=== PATIENT | female | born 1930 | race Caucasian/White ===

== ENCOUNTER → 2017-02-09 | Outpatient (CLI) | payer OTHER, MEDICARE | LOC: BHLMT 14:00 | PROVIDERS: ATTEND Internal Medicine Cardiovascular Disease | DX: I05.9 Rheumatic mitral valve disease, unspecified (principal); I48.0 Paroxysmal atrial fibrillation; I49.5 Sick sinus syndrome; I50.30 Unspecified diastolic (congestive) heart failure; I27.2 Other secondary pulmonary hypertension; G47.33 Obstructive sleep apnea (adult) (pediatric); E11.65 Type 2 diabetes mellitus with hyperglycemia; Z95.0 Presence of cardiac pacemaker | CPT/HCPCS: 93005-PO ==

== ENCOUNTER → 2017-02-17 | Outpatient (CLI) | payer OTHER, MEDICARE | LOC: BHLMT 14:00 | PROVIDERS: ATTEND Internal Medicine Cardiovascular Disease | DX: I48.91 Unspecified atrial fibrillation (principal); R06.00 Dyspnea, unspecified | CPT/HCPCS: 93306-PO ==

== ENCOUNTER → 2018-01-24 | Day surgery (SDC) | payer OTHER, MEDICARE ==
[~2018-01-24] MED LIST: ATROPINE SULFATE 1 MG/10 ML SYR IVP ONE; LIDOCAINE 2% 5 ML SDV ONE; MIDAZOLAM 2 MG/2 ML VIAL IVP ONE; NS 500 ML IV ONE; PROPOFOL 200 MG/20 ML VIAL ONE; fentaNYL 100 MCG/2 ML INJ IVP ONE
--- NOTE | 2018-01-24 14:00 | PDHPUP ---
History & Physical Update H&P update statement: This history and physical update is based on an assessment of the patient which was completed after admission or registration (within 24 hours), but prior to the surgery/procedure. H&P update: H&P reviewed & patient examined, no change in patient's condition since H&P completed
[2018-01-24 15:02] LABS: INR 2.75 (0.83-1.16)
--- NOTE | 2018-01-24 15:31 | PDTEE1 ---
SANJUANITA Cardioversion Procedure Indications: atrial fibrillation Consent: signed and in chart Anticoagulation: warfarin Procedural Details: Pads were placed in anterior-posterior position. Synchronized cardioversion attempt #1: 200J Results: normal sinus rhythm Conclusions: successful cardioversion Patient Problems: Problems Problem Status Onset Afib - Atrial fibrillation Active Sinus node dysfunction Active Mitral valve disorder Active CHF - Diastolic heart failure Active
--- NOTE | 2018-01-24 15:40 | PDANEPAE ---
ANE History of Present Illness cv ANE Past Medical History - Cardiovascular History Hx Hypertension: Yes Hx Arrhythmias: Yes Hx Chest Pain: Yes Hx Coronary Artery / Peripheral Vascular Disease: No Hx CHF / Valvular Disease: Yes Hx Palpitations: No Cardiovascular History Comment: P AFIB. SSS- DUAL CHAMBER PACEMAKER. HEART FAILURE ASYMPTOMATIC. MVR - Pulmonary History Hx COPD: No Hx Asthma/Reactive Airway Disease: No Hx Recent Upper Respiratory Infection: No Hx Oxygen in Use at Home: Yes Hx Sleep Apnea: Yes Pulmonary History Comment: ASTHMA. DINA- CPAP, O2 AT NOC. PULM HTN - Neurologic History Hx Cerebrovascular Accident: No Hx Seizures: No Hx Dementia: No - Endocrine History Hx Diabetes: Yes Endocrine History Comment: DM II - Renal History Hx Renal Disorders: No - Liver History Hx Hepatic Disorders: No - Neurological & Psychiatric Hx Hx Neurological and Psychiatric Disorders: No - Cancer History Hx Cancer: No - Congenital Disorder History Hx Congenital Disorders: No - GI History Hx Gastrointestinal Disorders: No Gastrointestinal History Comment: HEMORRHOIDS REPAIR 05/2016 STATES NOW HAS INFECTION 06/2016. GERD. DIFFICULTY SWALLOWING - Other Health History Other Health History: HEARING LOSS. BRUISE EASILY- WARFARIN. OA- KNEES. MISSING TEETH - Chronic Pain History Chronic Pain: Yes (OA- KNEES) - Surgical History Prior Surgeries: HEMORRHOIDECTOMY 05/2016. PACEMAKER 2012. CATARACTS. L WRIST 2010. MVR 2005. CORONARY ANGIOGRAM. R ANKLE FX 1996. CHOLECYSTECTOMY. HYSTEROSCOPY. HEMORRHOID CAUTERIZATION ANE Review of Systems Review of Systems: - Exercise capacity METS (RN): 4 METS - Pacemaker Date Pacemaker Last Checked: unknown ANE Patient History - Allergies Allergies/Adverse Reactions: codeine [Codeine] Allergy (Intermediate, Verified 05/13/16 16:00) Vomiting - Home Medications Home Medications: Simvastatin [Zocor 20 mg] 20 mg PO HS 05/10/13 [Last Taken 07/03/16] glipiZIDE [Glipizide 10 MG (RX)] 10 mg PO DAILY AT 10AM 05/10/13 [Last Taken 08:00] Acetaminophen [Tylenol ES 500 mg (*)] 500 mg PO Q6 PRN 05/12/16 [Last Taken 20:00] Furosemide [Lasix 20 MG (*)] 40 mg PO DAILY AT 10AM 05/12/16 [Last Taken 08:00] Sotalol HCl [SOTALOL] 80 mg PO BID 05/13/16 [Last Taken 07/03/16 07:15] Amox-Clav 875-125 mg Tablet PO BID 07/02/16 [Last Taken 07/02/16] - Smoking Hx Smoking Status: Never smoked - Family Anes Hx Family Hx Anesthesia Complications: NONE ANE Labs/Vital Signs - Labs Result Diagrams: 01/24/18 14:40 ANE Physical Exam - Airway Mallampati Score: Class 2 Mouth exam: normal dental/mouth exam - Pulmonary Pulmonary: no respiratory distress - Cardiovascular Cardiovascular: irregularly irregular - ASA Status ASA Status: III ANE Anesthesia Plan Anesthesia Plan: GA with mask (ivga)
--- NOTE | 2018-01-24 15:41 | POSTANESTH ---
Post Anesthetic Evaluation Cardiovascular Status: Normal, Stable Respiratory Status: Normal, Stable Level of Consciousness/Mental Status: Can Participate in Eval Pain Control: Adequate, Prn Tx Ordered Nausea/Vomiting Control: Adequate, Prn Tx Ordered Complications Possibly Related to Anesthesia: None Noted
--- NOTE | 2018-01-24 15:41 | CPEKG ---
Heart Rate: 63 RR Interval: 952 P-R Interval: 224 QRSD Interval: 106 QT Interval: 440 QTC Interval: 451 QRS [place]: 39 T Wave [place]: 105 EKG Severity - ABNORMAL ECG - EKG Impression: ATRIAL-PACED RHYTHM EKG Impression: NONSPECIFIC T ABNORMALITIES, ANT-LAT LEADS Electronically Signed By: Hayden Richter 26-Jan-2018 10:09:50
== END | disposition home or self-care (01) ==
LOC: FCATH 13:36
PROVIDERS: ATTEND Internal Medicine Interventional Cardiology
PROC: 5A2204Z Restoration of Cardiac Rhythm, Single (ICD-10-PCS; principal; 2018-01-24)
DX: I48.0 Paroxysmal atrial fibrillation (principal); I05.9 Rheumatic mitral valve disease, unspecified; I49.5 Sick sinus syndrome; I50.30 Unspecified diastolic (congestive) heart failure; E66.9 Obesity, unspecified; I27.29 Other secondary pulmonary hypertension; G47.33 Obstructive sleep apnea (adult) (pediatric); Z95.0 Presence of cardiac pacemaker
CPT/HCPCS: J2704

== ENCOUNTER → 2018-02-22 | Outpatient (CLI) | payer OTHER, MEDICARE | LOC: BHLMT 11:30 | PROVIDERS: ATTEND Internal Medicine Interventional Cardiology | DX: I48.91 Unspecified atrial fibrillation (principal); I05.9 Rheumatic mitral valve disease, unspecified | CPT/HCPCS: 93306-PO ==

== ENCOUNTER 2018-03-31 11:51 | Day surgery (SDC) | payer OTHER, MEDICARE ==
[2018-03-31] MEDS ORDERED: ATROPINE SULFATE 1 MG/10 ML SYR IVP ONE (11:57)
[2018-03-31] MEDS ORDERED: MIDAZOLAM 2 MG/2 ML VIAL IVP ONE (11:57)
[2018-03-31] MEDS ORDERED: fentaNYL 100 MCG/2 ML INJ IVP ONE (11:57)
[2018-03-31] MEDS ORDERED: BENZOCAINE UNIT DOSE SPRAY HURRICAINE MM ONE (11:57)
[2018-03-31] MEDS ORDERED: NS 500 ML IV ONE (11:57)
--- NOTE | 2018-03-31 12:24 | CPEKG ---
Heart Rate: 92 RR Interval: 652 QRSD Interval: 114 QT Interval: 408 QTC Interval: 505 QRS [place]: 64 T Wave [place]: 81 EKG Severity - ABNORMAL ECG - EKG Impression: A-FLUTTER W/ PREDOM 3:1 AV BLOCK, A-RATE 263 EKG Impression: NONSPECIFIC INTRAVENTRICULAR CONDUCTION DELAY Electronically Signed By: Matt Dean 31-Mar-2018 15:28:19
[2018-03-31 12:51] LABS: INR 2.39 (0.83-1.16); PROTIME(PATIENT) 26.1 SEC (12.0-15.0)
--- NOTE | 2018-03-31 13:06 | PDANEPAE ---
ANE History of Present Illness 87 yo for dcvc, afib ANE Past Medical History - Cardiovascular History Hx Hypertension: Yes Hx Arrhythmias: Yes Hx Chest Pain: Yes Hx Coronary Artery / Peripheral Vascular Disease: No Hx CHF / Valvular Disease: Yes Hx Palpitations: No Cardiovascular History Comment: P AFIB. SSS- DUAL CHAMBER PACEMAKER. HEART FAILURE ASYMPTOMATIC. MVR - Pulmonary History Hx COPD: No Hx Asthma/Reactive Airway Disease: No Hx Recent Upper Respiratory Infection: No Hx Oxygen in Use at Home: Yes Hx Sleep Apnea: Yes Pulmonary History Comment: ASTHMA. DINA- CPAP, O2 AT [facility]. PULM HTN - Neurologic History Hx Cerebrovascular Accident: No Hx Seizures: No Hx Dementia: No - Endocrine History Hx Diabetes: Yes Endocrine History Comment: DM II - Renal History Hx Renal Disorders: No - Liver History Hx Hepatic Disorders: No - Neurological & Psychiatric Hx Hx Neurological and Psychiatric Disorders: No - Cancer History Hx Cancer: No - Congenital Disorder History Hx Congenital Disorders: No - GI History Hx Gastrointestinal Disorders: No Gastrointestinal History Comment: HEMORRHOIDS REPAIR 05/2016 STATES NOW HAS INFECTION 06/2016. GERD. DIFFICULTY SWALLOWING - Other Health History Other Health History: HEARING LOSS. BRUISE EASILY- WARFARIN. OA- KNEES. MISSING TEETH - Chronic Pain History Chronic Pain: Yes (OA- KNEES) - Surgical History Prior Surgeries: HEMORRHOIDECTOMY 05/2016. PACEMAKER 2012. CATARACTS. L WRIST 2010. MVR 2005. CORONARY ANGIOGRAM. R ANKLE FX 1996. CHOLECYSTECTOMY. HYSTEROSCOPY. HEMORRHOID CAUTERIZATION ANE Review of Systems Review of Systems: - Exercise capacity METS (RN): 3 METS - Pacemaker Date Pacemaker Last Checked: unknown ANE Patient History - Allergies Allergies/Adverse Reactions: codeine [Codeine] Allergy (Intermediate, Verified 05/13/16 16:00) Vomiting - Home Medications Home medications: home medication list seen and reviewed Home Medications: Simvastatin [Zocor 20 mg] 20 mg PO HS 05/10/13 [Last Taken 07/03/16] glipiZIDE [Glipizide 10 MG (RX)] 10 mg PO DAILY AT 10AM 05/10/13 [Last Taken 08:00] Acetaminophen [Tylenol ES 500 mg (*)] 500 mg PO Q6 PRN 05/12/16 [Last Taken 20:00] Furosemide [Lasix 20 MG (*)] 40 mg PO DAILY AT 10AM 05/12/16 [Last Taken 08:00] Sotalol HCl [SOTALOL] 80 mg PO BID 05/13/16 [Last Taken 07/03/16 07:15] Amox-Clav 875-125 mg Tablet PO BID 07/02/16 [Last Taken 07/02/16] - Smoking Hx Smoking Status: Never smoked - Family Anes Hx Family Hx Anesthesia Complications: NONE ANE Labs/Vital Signs - Labs Result Diagrams: 03/31/18 12:30 - Vital Signs Height: 5 ft 5 in Weight: 86.636 kg ANE Physical Exam - Airway Mallampati Score: Class 2 Mouth exam: normal dental/mouth exam - Pulmonary Pulmonary: no respiratory distress - Cardiovascular Cardiovascular: regular rate and rhythym - ASA Status ASA Status: III ANE Anesthesia Plan Anesthesia Plan: GA with mask
[2018-03-31] MEDS ORDERED: PROPOFOL 200 MG/20 ML VIAL ONE (13:07)
--- NOTE | 2018-03-31 13:19 | PDTEE1 ---
SANJUANITA Cardioversion Procedure Procedure: electrical cardioversion Indications: atrial fibrillation Consent: signed and in chart Anticoagulation: warfarin Procedural Details: Pads were placed in anterior-posterior position. SANJUANITA probe was advanced and standard images obtained. There is no evidence of left atrial or left atrial appendage thrombus. Synchronized cardioversion attempt #1: 200J Results: normal sinus rhythm Conclusions: successful cardioversion Patient Problems: Problems Problem Status Onset Afib - Atrial fibrillation Active CHF - Diastolic heart failure Active Mitral valve disorder Active Sinus node dysfunction Active
--- NOTE | 2018-03-31 13:35 | CPEKG ---
Heart Rate: 60 RR Interval: 1000 P-R Interval: 252 QRSD Interval: 100 QTC Interval: 0 QRS [place]: 52 EKG Severity - ABNORMAL ECG - EKG Impression: ATRIAL-VENTRICULAR DUAL-PACED COMPLEXES EKG Impression: FIRST DEGREE AV BLOCK EKG Impression: BORDERLINE T ABNORMALITIES, ANT-LAT LEADS Electronically Signed By: Matt Dean 31-Mar-2018 15:28:11
[2018-03-31 14:39] VITALS: BP 118/72
== END 2018-03-31 15:28 | disposition home or self-care (01) ==
LOC: FCATH 11:51
PROVIDERS: ATTEND Internal Medicine Cardiovascular Disease
DX: I48.0 Paroxysmal atrial fibrillation (principal); Z95.2 Presence of prosthetic heart valve; I10 Essential (primary) hypertension; E11.9 Type 2 diabetes mellitus without complications; I49.5 Sick sinus syndrome; Z95.0 Presence of cardiac pacemaker; I05.9 Rheumatic mitral valve disease, unspecified
CPT/HCPCS: J0461; J2704

== ENCOUNTER → 2018-04-14 | Outpatient (CLI) | payer OTHER, MEDICARE | LOC: BHLMT 13:00 | PROVIDERS: ATTEND Internal Medicine Interventional Cardiology | DX: I49.5 Sick sinus syndrome (principal); I48.0 Paroxysmal atrial fibrillation; I38 Endocarditis, valve unspecified ==

== ENCOUNTER 2018-04-21 06:43 | Day surgery (SDC) | payer OTHER, MEDICARE ==
[2018-04-21] MEDS ORDERED: fentaNYL 100 MCG/2 ML INJ IVP ONE (06:46)
[2018-04-21] MEDS ORDERED: ATROPINE SULFATE 1 MG/10 ML SYR IVP ONE (06:46)
[2018-04-21] MEDS ORDERED: NS 500 ML IV ONE (06:46)
[2018-04-21] MEDS ORDERED: MIDAZOLAM 2 MG/2 ML VIAL IVP ONE (06:46)
--- NOTE | 2018-04-21 07:05 | CPEKG ---
Heart Rate: 98 RR Interval: 612 QRSD Interval: 108 QT Interval: 396 QTC Interval: 506 QRS [place]: 67 T Wave [place]: -22 EKG Severity - ABNORMAL ECG - EKG Impression: ATRIAL FIBRILLATION EKG Impression: BORDERLINE PROLONGED QT INTERVAL EKG Impression: ATRIAL FIBRILLATION HAS REPLACED AV PACING NOTED ON PRIOR ECG Electronically Signed By: Israel Deleon 21-Apr-2018 16:33:20
[2018-04-21 07:28] LABS: INR 2.12 (0.83-1.16); PROTIME(PATIENT) 23.8 SEC (12.0-15.0)
[2018-04-21] MEDS ORDERED: PROPOFOL 200 MG/20 ML VIAL ONE (08:42)
--- NOTE | 2018-04-21 08:48 | PDANEPAE ---
ANE History of Present Illness a. fib ANE Past Medical History - Cardiovascular History Hx Hypertension: Yes Hx Arrhythmias: Yes Hx Chest Pain: Yes Hx Coronary Artery / Peripheral Vascular Disease: No Hx CHF / Valvular Disease: Yes Hx Palpitations: No Cardiovascular History Comment: P AFIB. SSS- DUAL CHAMBER PACEMAKER. HEART FAILURE ASYMPTOMATIC. MVR - Pulmonary History Hx COPD: No Hx Asthma/Reactive Airway Disease: No Hx Recent Upper Respiratory Infection: No Hx Oxygen in Use at Home: Yes Hx Sleep Apnea: Yes Pulmonary History Comment: ASTHMA. DINA- CPAP, O2 AT NOC. PULM HTN - Neurologic History Hx Cerebrovascular Accident: No Hx Seizures: No Hx Dementia: No - Endocrine History Hx Diabetes: Yes Endocrine History Comment: DM II - Renal History Hx Renal Disorders: No - Liver History Hx Hepatic Disorders: No - Neurological & Psychiatric Hx Hx Neurological and Psychiatric Disorders: No - Cancer History Hx Cancer: No - Congenital Disorder History Hx Congenital Disorders: No - GI History Hx Gastrointestinal Disorders: No Gastrointestinal History Comment: HEMORRHOIDS REPAIR 05/2016 STATES NOW HAS INFECTION 06/2016. GERD. DIFFICULTY SWALLOWING - Other Health History Other Health History: HEARING LOSS. BRUISE EASILY- WARFARIN. OA- KNEES. MISSING TEETH - Chronic Pain History Chronic Pain: Yes (OA- KNEES) - Surgical History Prior Surgeries: HEMORRHOIDECTOMY 05/2016. PACEMAKER 2012. CATARACTS. L WRIST 2010. MVR 2005. CORONARY ANGIOGRAM. R ANKLE FX 1996. CHOLECYSTECTOMY. HYSTEROSCOPY. HEMORRHOID CAUTERIZATION ANE Review of Systems Review of systems is: negative Review of Systems: - Exercise capacity Exercise capacity: >=4 METS - Pacemaker Date Pacemaker Last Checked: unknown ANE Patient History - Allergies Allergies/Adverse Reactions: codeine [Codeine] Allergy (Intermediate, Verified 05/13/16 16:00) Vomiting - Home Medications Home Medications: Simvastatin [Zocor 20 mg] 20 mg PO HS 05/10/13 [Last Taken 07/03/16] glipiZIDE [Glipizide 10 MG (RX)] 10 mg PO DAILY AT 10AM 05/10/13 [Last Taken ] Acetaminophen [Tylenol ES 500 mg (*)] 500 mg PO Q6 PRN 05/12/16 [Last Taken 20:00] Furosemide [Lasix 20 MG (*)] 60 mg PO DAILY AT 10AM 05/12/16 [Last Taken 08:00] Potassium Chloride 20 meq DAILY 03/31/18 [Last Taken Unknown] Warfarin Sodium 2.5 03/31/18 [Last Taken 03/30/18 1700] - Smoking Hx Smoking Status: Never smoked - Family Anes Hx Family Hx Anesthesia Complications: NONE ANE Labs/Vital Signs - Labs Result Diagrams: 04/21/18 07:11 - Vital Signs Height: 152.4 cm Weight: 86.183 kg ANE Physical Exam - Airway Neck exam: FROM Mallampati Score: Class 1 Mouth exam: normal dental/mouth exam - Pulmonary Pulmonary: no respiratory distress - Cardiovascular Cardiovascular: regular rate and rhythym - ASA Status ASA Status: III ANE Anesthesia Plan Anesthesia Plan: general endotracheal anesthesia
[2018-04-21] MEDS ORDERED: ATROPINE SULFATE 1 MG/10 ML SYR ONE (08:51)
--- NOTE | 2018-04-21 09:19 | CPEKG ---
Heart Rate: 64 RR Interval: 938 P-R Interval: 200 QRSD Interval: 148 QT Interval: 496 QTC Interval: 512 QRS [place]: -62 T Wave [place]: 91 EKG Severity - ABNORMAL ECG - EKG Impression: ATRIAL-VENTRICULAR DUAL-PACED COMPLEXES EKG Impression: NONSPECIFIC IVCD WITH LAD EKG Impression: LEFT VENTRICULAR HYPERTROPHY EKG Impression: AV PACING HAS REPLACED ATRIAL FIBRILLATION NOTED ON PRIOR ECG Electronically Signed By: Israel Deleon 21-Apr-2018 16:33:41
--- NOTE | 2018-04-21 09:28 | POSTANESTH ---
Post Anesthetic Evaluation Cardiovascular Status: Normal, Stable Respiratory Status: Normal, Stable Level of Consciousness/Mental Status: Can Participate in Eval, Alert and Oriented Pain Control: Adequate, Prn Tx Ordered Nausea/Vomiting Control: Adequate, Prn Tx Ordered Complications Possibly Related to Anesthesia: None Noted
--- NOTE | 2018-04-21 18:01 | PDCARD ---
Cardioversion Procedure Procedure: electrical cardioversion Indications: atrial fibrillation Consent: signed and in chart Anticoagulation: warfarin, eliquis Procedural Details: Pads were placed in anterior-posterior position. Synchronized cardioversion attempt #1: 200J Results: normal sinus rhythm Conclusions: successful cardioversion Patient Problems: Problems Problem Status Onset Afib - Atrial fibrillation Active CHF - Diastolic heart failure Active Mitral valve disorder Active Sinus node dysfunction Active
== END 2018-04-21 10:13 | disposition home or self-care (01) ==
LOC: FCATH 06:43 → EDSTATUS 05-10 11:00
PROVIDERS: ATTEND Internal Medicine Cardiovascular Disease
PROC: 5A2204Z Restoration of Cardiac Rhythm, Single (ICD-10-PCS; principal; 2018-04-21)
DX: I48.0 Paroxysmal atrial fibrillation (principal); I49.5 Sick sinus syndrome; I38 Endocarditis, valve unspecified; E11.65 Type 2 diabetes mellitus with hyperglycemia; I27.20 Pulmonary hypertension, unspecified; Z95.0 Presence of cardiac pacemaker; Z95.2 Presence of prosthetic heart valve; Z79.01 Long term (current) use of anticoagulants
CPT/HCPCS: J0461; J2704

== ENCOUNTER 2018-05-12 10:46 | Observation (INO) | payer OTHER, MEDICARE ==
[2018-05-12] MEDS ORDERED: NS 1,000 ML IV ONE (10:57)
--- NOTE | 2018-05-12 11:22 | CPEKG ---
Heart Rate: 68 RR Interval: 882 P-R Interval: 232 QRSD Interval: 134 QT Interval: 480 QTC Interval: 511 P [place]: 92 QRS [place]: -65 T Wave [place]: 84 EKG Severity - ABNORMAL ECG - EKG Impression: ATRIAL-VENTRICULAR DUAL-PACED COMPLEXES Electronically Signed By: Michael Beck 19-May-2018 21:34:13
--- NOTE | 2018-05-12 11:22 | PDGENHP ---
History & Physical Chief Complaint: AF with RVR History of Present Illness: AF with RVR and need for multiple meds Pertinent Past, Social, Family History: reviewed and unchanged Relevant Physical Exam: s1s2 irregular Cardiorespiratory Assessment: reviewed and normal
[2018-05-12] MEDS ORDERED: PROPOFOL/EMULSION 500 MG/50 ML BOTTLE IV ONE (11:26)
[2018-05-12] MEDS ORDERED: fentaNYL 100 MCG/2 ML INJ ONE (11:28)
--- NOTE | 2018-05-12 11:57 | PDANEPAE ---
ANE History of Present Illness 87 year old female for AV node ablation. History significant for DM and A fib. ANE Past Medical History - Cardiovascular History Hx Hypertension: Yes Hx Arrhythmias: Yes Hx Chest Pain: Yes Hx Coronary Artery / Peripheral Vascular Disease: No Hx CHF / Valvular Disease: Yes Hx Palpitations: No Cardiovascular History Comment: P AFIB. SSS- DUAL CHAMBER PACEMAKER. HEART FAILURE ASYMPTOMATIC. MVR - Pulmonary History Hx COPD: No Hx Asthma/Reactive Airway Disease: No Hx Recent Upper Respiratory Infection: No Hx Oxygen in Use at Home: Yes Hx Sleep Apnea: Yes Pulmonary History Comment: ASTHMA. DINA- CPAP, O2 AT NOC. PULM HTN - Neurologic History Hx Cerebrovascular Accident: No Hx Seizures: No Hx Dementia: No - Endocrine History Hx Diabetes: Yes Endocrine History Comment: DM II - Renal History Hx Renal Disorders: No - Liver History Hx Hepatic Disorders: No - Neurological & Psychiatric Hx Hx Neurological and Psychiatric Disorders: No - Cancer History Hx Cancer: No - Congenital Disorder History Hx Congenital Disorders: No - GI History Hx Gastrointestinal Disorders: No Gastrointestinal History Comment: HEMORRHOIDS REPAIR 05/2016 STATES NOW HAS INFECTION 06/2016. GERD. DIFFICULTY SWALLOWING - Other Health History Other Health History: HEARING LOSS. BRUISE EASILY- WARFARIN. OA- KNEES. MISSING TEETH - Chronic Pain History Chronic Pain: Yes (OA- KNEES) - Surgical History Prior Surgeries: HEMORRHOIDECTOMY 05/2016. PACEMAKER 2012. CATARACTS. L WRIST 2010. MVR 2005. CORONARY ANGIOGRAM. R ANKLE FX 1996. CHOLECYSTECTOMY. HYSTEROSCOPY. HEMORRHOID CAUTERIZATION ANE Review of Systems Review of systems is: negative Review of Systems: Difficulty laying flat as she feels like she can't swallow. Has difficulty swallowing some foods. - Pacemaker Date Pacemaker Last Checked: unknown ANE Patient History - Allergies Allergies/Adverse Reactions: codeine [Codeine] Allergy (Intermediate, Verified 05/13/16 16:00) Vomiting latex Allergy (Verified 05/05/18 10:01) Rash - Home Medications Home Medications: Simvastatin [Zocor 20 mg] 20 mg PO HS 05/10/13 [Last Taken 07/03/16] glipiZIDE [Glipizide 10 MG (RX)] 10 mg PO DAILY 05/10/13 [Last Taken 03/30/18] Acetaminophen [Tylenol ES 500 mg (*)] 500 mg PO Q6 PRN 05/12/16 [Last Taken 20:00] Furosemide [Lasix 20 MG (*)] 60 mg PO DAILY 05/12/16 [Last Taken 07/02/16 08:00] Potassium Chloride 20 meq PO DAILY 03/31/18 [Last Taken Unknown] Amiodarone HCl [Pacerone (*)] 200 mg PO DAILY 05/05/18 [Last Taken Unknown] Herbals/Supplements -Info Only 1 ea PO DAILY 05/05/18 [Last Taken Unknown] Metoprolol Tartrate [Lopressor 25 mg (*)] 25 mg PO HS 05/05/18 [Last Taken Unknown] Warfarin Sodium [Coumadin 2.5MG (*)] 1.25 mg PO MOTHSA@05/05/18 [Last Taken Unknown] Warfarin Sodium [Coumadin 2.5MG (*)] 2.5 mg PO SUTUWEFR@05/05/18 [Last Taken Unknown] - Smoking Hx Smoking Status: Never smoked - Family Anes Hx Family Hx Anesthesia Complications: NONE ANE Labs/Vital Signs - Labs Result Diagrams: 05/12/18 11:30 05/12/18 11:30 - Vital Signs Height: 165 cm Weight: 86.2 kg ANE Physical Exam - Airway Neck exam: FROM Mallampati Score: Class 2 Mouth exam: normal dental/mouth exam - Pulmonary Pulmonary: no respiratory distress - Cardiovascular Cardiovascular: regular rate and rhythym - ASA Status ASA Status: III ANE Anesthesia Plan Anesthesia Plan: MAC
[2018-05-12 11:58] LABS: PLATELET COUNT 159 10^3/uL (150-400)
[2018-05-12 12:03] LABS: INR 1.5 (0.83-1.16); PROTIME(PATIENT) 18.3 SEC (12.0-15.0)
[2018-05-12] MEDS ORDERED: LIDOCAINE 1% 300 MG/30 ML SDV ONE (12:12)
[2018-05-12] MEDS ORDERED: BUPIVACAINE 0.75% 10 ML SDV ONE (12:12)
[2018-05-12] MEDS ORDERED: ACETAMINOPHEN 500 MG TAB PO PRN (13:45)
--- NOTE | 2018-05-12 14:11 | CPEKG ---
Heart Rate: 70 RR Interval: 857 P-R Interval: 194 QRSD Interval: 160 QT Interval: 480 QTC Interval: 519 P [place]: 0 QRS [place]: -72 T Wave [place]: 88 EKG Severity - ABNORMAL ECG - EKG Impression: VENTRICULAR-PACED COMPLEXES Electronically Signed By: Michael Beck 19-May-2018 21:33:30
[2018-05-12] MEDS ORDERED: fentaNYL 100 MCG/2 ML INJ IVP PRN (16:05)
[2018-05-12] MEDS ORDERED: NALOXONE HCL 0.4 MG/ML INJ IVP PRN (16:05)
[2018-05-12] MEDS ORDERED: ONDANSETRON 4 MG/2 ML VIAL IVP PRN (16:05)
[2018-05-12] MEDS ORDERED: WARFARIN SODIUM 2.5 MG TAB PO SCH (21:00)
[2018-05-12] MEDS ORDERED: ATORVASTATIN CALCIUM 10 MG TAB PO SCH (21:00)
[2018-05-13 07:30] VITALS: BP 122/62
--- NOTE | 2018-05-13 08:59 | EPPROC ---
Electrophysiology Procedure Note: Procedures performed: 04519 AV node ablation Fluoroscopy INDICATION: Atrial fibrillation, unable to rate control despite maximally tolerated medical therapy Catheters & Anesthesia: The patient arrived in the Electrophysiology Laboratory in the fasting state. Moderate sedation was administered. The right groin and left groin area were prepped and draped in the usual sterile manner. Appropriate non-invasive blood pressure, pulse oximetry and end-tidal CO2 monitoring was established. All catheters were placed percutaneously using the modified Seldinger technique and advanced into position under fluoroscopic guidance). At baseline the patient was noted to be in Apaced rhythm with a mean ventricular rate of 60 bpm. A #7 Stateless deflectable quadrapolar electrode catheter (2mm-5mm-2mm spacing) with 8 mm tip electrode was advanced to the right atrium. A total of 4 RF applications were delivered. RF#1 was applied in the area of the compact AV node. RF#2 was applied to the same area as RF#1. RF#3 was applied to the area of the fast AV diana pathway. RF#4 was applied to the right midseptal tricuspid annulus. There was complete AV block after RF#4. Cessation of pacing revealed that there was no escape rhythm at RISK ADVISOR of 40bpm. Pacemaker implantation was done previously. The pacemaker was programmed to a lower rate of 60 ppm t Fluoroscopically pacemaker lead positions were unchanged after procedure Pacemaker thresholds and impedances were unchanged after the procedure The catheters were removed. The patient was transferred to the cardiovascular holding area in stable condition. Vascular access sheaths were removed in the holding area. There were no apparent complications. CONCLUSIONS: Atrial fibrillation with rapid ventricular response. Successful ablation of the AV junction producing complete AV block. No complications. Patient Problems: Problems Problem Status Onset Afib - Atrial fibrillation Active CHF - Diastolic heart failure Active Mitral valve disorder Active Sinus node dysfunction Active
--- NOTE | 2018-05-13 08:59 | CPEKG ---
Heart Rate: 71 RR Interval: 845 QRSD Interval: 160 QT Interval: 480 QTC Interval: 522 QRS [place]: -77 T Wave [place]: 96 EKG Severity - ABNORMAL ECG - EKG Impression: VENTRICULAR-PACED RHYTHM Electronically Signed By: Michael Beck 19-May-2018 21:33:08
[2018-05-13] MEDS ORDERED: Herbals/Supplements -Info Only PO SCH (09:00)
[2018-05-13] MEDS ORDERED: glipiZIDE 10 MG TAB PO SCH (09:00)
[2018-05-13] MEDS ORDERED: POTASSIUM CL 20 MEQ TAB PO SCH (09:00)
[2018-05-13] MEDS ORDERED: FUROSEMIDE 20 MG TAB PO SCH (09:00)
--- NOTE | 2018-05-13 10:14 | GDS ---
[f rep st] DISCHARGE SUMMARY DISCHARGE DIAGNOSES: 1. Paroxysmal atrial fibrillation. Failed sotalol and amiodarone therapy, status post arteriovenous diana ablation. 2. History of sick sinus syndrome, status post pacemaker placement. 3. Mitral valve disease with a history of mitral valve repair. HOSPITAL COURSE: For a detailed H and P, please see prior dictation. Briefly, the patient is an 87- year-old female with a history of mitral valve disease, status post mitral valve repair in 2005. She also has a history of paroxysmal atrial fibrillation, which began around the time of her surgery. S he had been maintained on sotalol, but has had a few recurrences this year and therefore was switched to amiodarone. She failed amiodarone therapy as well. When in atrial fibrillation, she complains o f shortness of breath and fatigue. Ultimately, the decision was made to proceed with an AV diana abl ation. This was performed by Dr. Oleg Adames on 05/12/2018. The procedure was uncomplicated. The following day, she denied any chest discomfort. Her groin where access was obtained for the EP study and ablation is clean and intact, without any evidence of infection or hematoma. She is currently o n Coumadin, and her INR is subtherapeutic at 1.5. She will have an INR drawn next week. PHYSICAL EXAMINATION: GENERAL: Patient appears in no acute distress. VITALS: Blood pressure 122/6 2, heart rate 70, oxygen saturation 92% on room air, afebrile. LUNGS: Clear to auscultation. No wh eezes, rhonchi, or crackles auscultated. CARDIAC: Regular rate and rhythm. Right groin where acces s was obtained for the EP study and ablation is clean, intact, without any evidence of infection or h ematoma. DISCHARGE MEDICATIONS: She will discontinue metoprolol and amiodarone. She will continue glipizide 10 mg daily, simvastatin 20 mg daily, Tylenol p.r.n., Lasix 60 mg daily, potassium 20 mEq daily, warf [place] 1.25 mg Wednesday, , Wednesday and 2.5 mg on the remaining days, herbal supplement daily. PLAN: The patient is currently stable and ready for discharge home. She has been given groin precau tions. She will have an INR drawn next week. She is scheduled for a pacer interrogation on 05/20 at 11 at our [place] office. She is also scheduled for a followup visit with Dr. Oleg Adames on May 25 at 4 p.m. /[id number]/LYNL
--- NOTE | 2018-05-13 12:07 | ASDISCHSUM ---
Discharge Information Plan Status:Home with No Needs Medically Cleared to Leave:05/13/2018 Discharge Date:05/13/2018 11:17 AM CM D/C Disposition:Home, Routine, Self-Care ADT D/C Disposition:Home, Routine, Self-Care Projected Discharge Date:05/13/2018 11:17 AM Transportation at D/C:Self Discharge Delay Reason: Follow-Up Date:05/13/2018 11:17 AM Discharge Slot: Final Diagnosis: Placement Information Patient Contact Information Contact Name:RUSTY Relationship:Daughter Address:[address] [place] [address] Home Phone: City:[place] Alternate Phone: [facility]/Zip Code:[place] [address] Email: Financial Information Financial Class:Medicare Primary Plan Desc:MEDICARE OUTPATIENT Primary Plan Number:[id number] Secondary Plan Desc:JUHI/MDR SUPPLEMENT Secondary Plan Number:[id number] Assessment Information LACE LACE Length of stay for Answers: Less than 1 day current admission Acuity / Level of Answers: No Care: Did the patient have an inpatient admission? Comorbidities - select Answers: Congestive heart failure all that apply Diabetes (uncontrolled or controlled) Opioid dependence / Chronic pain # of Emergency department Answers: 0 visits in the last 6 months Score: 7 Date Signed: 05/13/2018 12:06 PM Electronically Signed By:Rola Nguyen RN Intervention Information Intervention Type:JAYLENE-Signed Date of Service:05/13/2018 10:12 AM Patient Type:Observation Staff Member:Elizabet Moran Hours: Discipline: Severity: Comment:
[2018-05-13] MEDS ORDERED: WARFARIN SODIUM 2.5 MG TAB PO SCH (21:00)
== END 2018-05-13 11:17 | disposition home or self-care (01) ==
LOC: FCATH 10:46 → F2W 13:44
PROVIDERS: ADMIT Internal Medicine Cardiovascular Disease; ATTEND Internal Medicine Cardiovascular Disease
PROC: B2141ZZ Fluoroscopy of Right Heart using Low Osmolar Contrast (ICD-10-PCS; principal; 2018-05-12)
PROC: 02583ZZ Destruction of Conduction Mechanism, Percutaneous Approach (ICD-10-PCS; principal; 2018-05-12)
DX: I48.0 Paroxysmal atrial fibrillation (principal); I49.5 Sick sinus syndrome; I34.0 Nonrheumatic mitral (valve) insufficiency; E11.9 Type 2 diabetes mellitus without complications; Z95.2 Presence of prosthetic heart valve; Z95.0 Presence of cardiac pacemaker; G47.33 Obstructive sleep apnea (adult) (pediatric); J45.909 Unspecified asthma, uncomplicated; I27.20 Pulmonary hypertension, unspecified
CPT/HCPCS: 93005; 93650; C1732; J1644; J2704; J3010

== ENCOUNTER → 2019-02-03 | Outpatient (CLI) | payer OTHER, MEDICARE | LOC: BHLMT 10:00 | PROVIDERS: ATTEND Internal Medicine Interventional Cardiology | DX: I48.91 Unspecified atrial fibrillation (principal); I05.9 Rheumatic mitral valve disease, unspecified | CPT/HCPCS: 93306-PO ==